=== PATIENT | male | born 1925 | race Caucasian/White ===

== ENCOUNTER 2016-06-09 16:47 | Emergency (ER) | payer MEDICARE ==
[2016-06-09 16:59] VITALS: TEMP 98.1; BMI 27.1
--- NOTE | 2016-06-09 18:06 | EDPRACDOC ---
- General Information Chief Complaint: Foreign Body Stated Complaint: FB IN ESOPHGUS WHILE EATING Time Seen by Provider: 06/09/16 17:59 Mode Of Arrival: Car Home Medications: Home Medications Diltiazem HCl [Cartia Xt] 240 mg PO DAILY 03/08/14 Nitroglycerin [Nitrostat] 0.4 mg SL Q5MX3 PRN 03/08/14 Budesonide [Pulmicort] 0.25 mg IH BID 12/18/15 Calcium Citrate/Vitamin D3 [Calcium Citrate-Vit D3 Caplet] 1 tab PO DAILY Gabapentin 300 mg PO TID 12/18/15 Hydroxyurea 500 mg PO BID 12/18/15 Warfarin Sodium 4 mg PO Q48H 12/18/15 Albuterol Sulfate 2.5 mg NEB Q4-6H PRN #120 12/23/15 Simvastatin [Zocor] 10 mg PO HS #30 tablet 12/23/15 Tamsulosin HCl [Flomax] 0.4 mg PO BID #60 capsule 12/23/15 Fluticasone Propionate [Flonase] 2 spray DENAE BID 01/14/16 Metoprolol Tartrate [Lopressor] 25 mg PO BID #60 tablet 01/19/16 Acetaminophen [Mapap] 500 mg PO Q6H PRN 06/09/16 Febuxostat [Uloric] 80 mg PO DAILY 06/09/16 Oxycodone HCl/Acetaminophen [Percocet 5-325 mg Tablet] 1 tab PO TID PRN Warfarin Sodium [Coumadin] 2.5 mg PO Q48H 06/09/16 Allergies/Adverse Reactions: Allergies Allergy/AdvReac Type Severity Reaction Status Date / Time No Known Allergies Allergy Verified 06/09/16 16:56 - History of Present Illness Onset: yesterday-1700 HPI: PT STATES HE WAS EATING CUBE STEAK YESTERDAY, STATES FEELS LIKE IT IS STUCK IN HIS THROAT, STATES UNABLE TO SWALLOW, EAT OR DRINK SINCE YESTERDAY, PT HAS HX OF SAME, NO FEVER OR CHILLS, NO N/V/D. Foreign Body Context: Reports: Possible Foreign Body Foreign Body: Food Location of Possible Foreign Body: Esophagus Shortness of breath: None Associated Signs & Symptoms: Reports: None ED Past Medical History - History Reviewed Yes Nurses notes reviewed and agree except as marked - Patient Medical History Neurological History: Reports: Dementia (mild) Cardiac History: Reports: Coronary Artery Disease, Atrial Fibrillation (takes warfarin), Hypertension, Cardiac Catheterization (and PACEMAKER (11/26/15 in [place]).), Hypercholesterolemia, Pacemaker (11/26/15 at [place].), Valvular Heart Disease (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 CHRONIC THROMBOCYTHEMIA.) Surgical History: Reports: Cholecystectomy, Cardiac Catheterization (and PACEMAKER (11/26/15 in [place]).), Tonsillectomy/Adnoidectomy, Other ( Prostate surgery) - Family Medical History Reports: Hypertension (father), Cancer (brother, lung), Stroke (FATHER), Cardiac Disorders (father) - Social Medical History Smoking Status: Never smoker Social History: Denies: Substance Use Disorder ETOH: None Substance Abuse: None EDM Review of Systems - Review of Systems Constitutional: negative: Chills, Fever Eyes: negative: Blurred Vision, Double Vision Ears: negative: Drainage Throat: negative: Pain Nose: negative: Congestion, Discharge Respiratory: negative: Cough, Shortness of Breath, Wheezing Cardiovascular: negative: Chest Pain, Palpitations Gastrointestinal: negative: Diarrhea, Nausea, Pain, Vomiting Genitourinary: negative: Dysuria, Frequency Neurological: negative: Dizziness, Headache, Numbness, Weakness Musculoskeletal: No Symptoms Reported Integumentary: No Symptoms Reported - Physical Exam Constitutional: Alert (Awake), No apparent distress Oriented to: Time, Person, Place Last recorded Vital Signs: Last Vital Signs Temp 98.1 F 06/09/16 16:57 Pulse 83 06/09/16 16:57 Resp 18 06/09/16 16:57 BP 127/70 06/09/16 16:57 Pulse Ox 94 06/09/16 16:57 Oxygen Pulse Oxygen Saturation 94 O2 Device Room Air Oxygen Flow Rate Fraction of Inspired Oxygen ( FIO2) - HEENT Head: Normal ( normocephalic) Eye Exam: Normal (PERRL, EOMI, Sclera white) Oropharynx: Normal (Pharynx:Moist without exudate,Gums-no swelling) Tympanic Membrane: Normal ENT EAC: Normal TMJ: Normal Nose: No Symptoms Reported (septum midline) Neck: Normal (FROM, trachea at midline) - Respiratory/Cardiovascular Respiratory: Normal - CTA (BBS clear to auscultation without adventitious sounds ) Cardiovascular: Normal (RRR without murmur, gallop or rub) - GI Auscultation: Normal (NABS) Palpation: Normal (Soft,No rebound or guarding, non distended) Tenderness: Non tender Padilla's Sign: Negative - Musculoskeletal Back: Normal (Non-Tender) Extremities: Normal (Normal tone, Pulses 2+ No cyanosis or edema, FROM) - Integumentary Skin: Normal, Warm, Dry Lymphatics: Normal (no adenopathy) - Neurologic Memory Impaired: Normal Motor Function: Normal (Normal tone, Pulses 2+ No cyanosis or edema, FROM) Cranial Nerve: Normal (CN II-X11 intact sensation, strength 5/5) Cerebellar: Normal Mood Description: Normal Perception: Normal - Differential Diagnosis Esophageal Obstruction - Re-evaluation Re-evaluation 1 Re-evaluation Time: 18:07 (PT SPITTING INTO BLUE EMESIS BAG, UNABLE TO TOLERATE SMALL SIP OF WATER.) - Diagnostic Imaging CXR Image interpreted by: Radiologist CHEST 1 VIEW COMPARISON: None. FINDINGS: Stable low lung volumes. There is bibasilar atelectasis. Interstitial markings are diffusely coarsened with chronic features. No edema or focal airspace consolidation. Cardiopericardial silhouette is at upper limits of normal for size. Single lead left-sided permanent pacemaker again noted. The visualized bony structures of the thorax are intact. IMPRESSION: Stable. No acute cardiopulmonary findings. SOFT TISSUE NECK Image interpreted by: Radiologist NECK SOFT TISSUES - 1+ VIEW COMPARISON: Chest x-ray 06/09/2016 FINDINGS: The hypopharynx is distended with air. The epiglottis is normal in appearance. No radiopaque foreign body identified. IMPRESSION: Distended hypopharynx. No radiopaque foreign body. Decision Time to Discharge: 21:37 (WHEN CLEARED FROM SEDATION) - Departure Disposition: Home Condition: Stable Final Diagnosis: Esophageal foreign body Qualifiers: Encounter type: initial encounter Qualified Code(s): T18.108A - Unspecified foreign body in esophagus causing other injury, initial encounter Instructions: Esophageal Foreign Body (ED) Education/Counseling Given To: Patient Education/Counseling Given Regarding: Diagnosis, Treatment, Prognosis, Follow Up Referrals: Hussein Banks MD [Staff Physician] - One Week Additional Instructions: FOLLOW UP WITH DR BANKS DIRECTED. - Physician Consulted GI Time Called: 18:07 Provider Called: Hussein Banks Time Drier Tender Naphthalene Returned Call: 18:15 (WILL SEE IN ED)
--- NOTE | 2016-06-09 18:27 | DIRPT ---
CLINICAL DATA: Informed body sensation after eating state yesterday. EXAM: CHEST 1 VIEW COMPARISON: None. FINDINGS: Stable low lung volumes. There is bibasilar atelectasis. Interstitial markings are diffusely coarsened with chronic features. No edema or focal airspace consolidation. Cardiopericardial silhouette is at upper limits of normal for size. Single lead left-sided permanent pacemaker again noted. The visualized bony structures of the thorax are intact. IMPRESSION: Stable. No acute cardiopulmonary findings. Electronically Signed By: Hai Davis M.D. On: 06/09/2016 18:24
--- NOTE | 2016-06-09 18:34 | DIRPT ---
CLINICAL DATA: Esophageal foreign body. Feels like food is stuck in his throat since state got stuck in his throat yesterday. Unable to eat, swallowed, or drink since then. EXAM: NECK SOFT TISSUES - 1+ VIEW COMPARISON: Chest x-ray 06/09/2016 FINDINGS: The hypopharynx is distended with air. The epiglottis is normal in appearance. No radiopaque foreign body identified. IMPRESSION: Distended hypopharynx. No radiopaque foreign body. Electronically Signed By: Jana Ahn M.D. On: 06/09/2016 18:31
[2016-06-09 18:49] LABS: PT-INR 1.5
[2016-06-09] MEDS ORDERED: MIDAZOLAM 5 MG/5 ML VIAL ONE (20:27)
[2016-06-09] MEDS ORDERED: MEPERIDINE 25 MG/ML TUBEX ONE (20:28)
--- NOTE | 2016-06-09 21:14 | PCM.CONSGI ---
Consult Date: 06/09/16 Consult Requesting Physician: Isidoro Vasquez Consult Reason: Other (Esophageal obstruction history of esophageal stricture) - History of Present Illness Mr. Rowan is an 89-year-old male patient with his esophageal stricture last esophageal dilation . He presented to the emergency room after greater than 24 hours of esophageal obstruction after eating cube steak. He has been unable to handle was all secretions. She has had no chest pain or fevers. A GI consult was obtained. Mr. Rowan is on Coumadin therapy. He has a history of atrial fibrillation and pacemaker. He is followed by Dr. Singh for thrombocytosis. He is on it been unable to take his medicines for over 24 hours. His vital signs are stable except for tachyarrhythmias. He has had no significant changes history since his last esophageal dilation in June 2015. He reports he was not having any problems with dysphagia to his acute obstruction yesterday. He is not reporting heartburn or indigestion. His appetite has been good again until his acute problem. He continues take omeprazole on a daily basis. He does have a history of chronic anemia again follow up with Dr. Garrett. He underwent a colonoscopy in 2014 showing diverticular disease and internal hemorrhoids. - Past Medical History Cardiac History: Reports: Coronary Artery Disease, Atrial Fibrillation (takes warfarin), Hypertension, Cardiac Catheterization (and PACEMAKER (11/26/15 in [place]).), Hypercholesterolemia, Pacemaker (11/26/15 at [place].), Valvular Heart Disease (Mild to moderate AORTIC STENOSIS by Echo 2012.) Respiratory History: Reports: Asthma (mild persistent.), COPD (never smoked.) GI/ History: Reports: Diverticulosis, Other Musculoskeletal History: Reports: Arthritis, Gout Systemic History: Reports: Anemia (Iron deficiency. 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 ), SKIN) Neurological History: Reports: Dementia (mild) Psychological History: Denies: Depression, Substance Use Disorder - Surgical History Past Surgical History: Reports: Cholecystectomy, T&A - Procedure History Procedure History: Reports: Endoscopy (2014), Colonoscopy (2014) - Family History Family History: Reports: Cardiac Disorders (father), Cancer (brother, lung), Hypertension (father), Stroke (FATHER) - Allergies Allergies No Known Allergies Allergy (Verified 06/09/16 16:56) - Medications Home Medications Diltiazem HCl [Cartia Xt] 240 mg PO DAILY 03/08/14 Nitroglycerin [Nitrostat] 0.4 mg SL Q5MX3 PRN 03/08/14 Budesonide [Pulmicort] 0.25 mg IH BID 12/18/15 Calcium Citrate/Vitamin D3 [Calcium Citrate-Vit D3 Caplet] 1 tab PO DAILY Gabapentin 300 mg PO TID 12/18/15 Hydroxyurea 500 mg PO BID 12/18/15 Warfarin Sodium 4 mg PO Q48H 12/18/15 Albuterol Sulfate 2.5 mg NEB Q4-6H PRN #120 12/23/15 Simvastatin [Zocor] 10 mg PO HS #30 tablet 12/23/15 Tamsulosin HCl [Flomax] 0.4 mg PO BID #60 capsule 12/23/15 Fluticasone Propionate [Flonase] 2 spray DENAE BID 01/14/16 Metoprolol Tartrate [Lopressor] 25 mg PO BID #60 tablet 01/19/16 Acetaminophen [Mapap] 500 mg PO Q6H PRN 06/09/16 Febuxostat [Uloric] 80 mg PO DAILY 06/09/16 Oxycodone HCl/Acetaminophen [Percocet 5-325 mg Tablet] 1 tab PO TID PRN Warfarin Sodium [Coumadin] 2.5 mg PO Q48H 06/09/16 - Social History Smoking Status: Never smoker Social History: Denies: Alcohol Use, Substance Use Disorder - Review of Systems Constitutional: Weakness. negative: Chills, Fever, Loss of Appetite Eyes: negative: Double Vision Ears: Hearing Loss Throat: negative: Hoarseness Nose: negative: Congestion Respiratory: Shortness of Breath. negative: Cough, Hemoptysis Cardiovascular: negative: Chest Pain, Edema Gastrointestinal: Heartburn, Hemorrhoids. negative: Abdominal Pain Genitourinary: negative: Hematuria Neurological: negative: Gait Difficulty Musculoskeletal: Arthritis Integumentary: negative: Bruising Allergic/Immunologic: negative: Itching Hematologic: Easy Bruising, Anemia Psychiatric: Anxiety - Exam Vital Signs: Temperature: 98.1 F (06/09/16 16:57) HR: 89 (06/09/16 18:49) RR: 18 (06/09/16 16:57) BP: 127/70 (06/09/16 16:57) Pulse Ox: 94 (06/09/16 18:49) General: Alert, Oriented x3, No acute distress, Other (using a emesis bag for his secretions) HEENT: Normal Respiratory: negative: Accessory Muscle Use Cardiovascular: Regular rate, Other (Tachycardia) Gastrointestinal: Distended, Bowel Sounds. negative: Soft, Tender Extremities: negative: Edema Skin: Warm,Dry and Intact Neurological: Normal speech Psych/Mental Status: Appropriate - Assessment and Plan (1) Esophageal obstruction Acute K22.2 - ESOPHAGEAL OBSTRUCTION (2) GERD (gastroesophageal reflux disease) Acute K21.9 - GASTRO-ESOPHAGEAL REFLUX DISEASE WITHOUT ESOPHAGITIS without esophagitis K21.9 - Gastro-esophageal reflux disease without esophagitis (3) MCFP (current) use of anticoagulants Acute Z79.01 - SHELTER (CURRENT) USE OF ANTICOAGULANTS (4) Peptic ulcer disease Acute K27.9 - PEPTIC ULC, SITE UNSP, UNSP AC OR CHR, W/O HEMOR OR PERF (5) Atrial fibrillation Chronic I48.91 - UNSPECIFIED ATRIAL FIBRILLATION chronic I48.2 - Chronic atrial fibrillation (6) CAD (coronary artery disease) Chronic I25.10 - ATHSCL HEART DISEASE OF [place] CORONARY ARTERY W/O ANG PCTRS [place] artery [place] heart without angina I25.10 - Atherosclerotic heart disease of [place] coronary artery without angina pectoris (7) Pacemaker Chronic Z95.0 - PRESENCE OF CARDIAC PACEMAKER (8) Thrombocythemia Chronic D47.3 - ESSENTIAL (HEMORRHAGIC) THROMBOCYTHEMIA Recommendations: 1. Arrange for upper endoscopy
--- NOTE | 2016-06-09 21:24 | HIMOPRPT ---
DATE OF PROCEDURE: DATE OF PROCEDURE: 06/09/16 PROCEDURE: Esophagogastroduodenoscopy with removal of foreign body. INDICATIONS: Acute esophageal obstruction history of esophageal stricture. INSTRUMENTS: Olympus video upper endoscope. MEDICATIONS: Versed 4 mg IV. PHYSICAL EXAMINATION: GENERAL: The patient was in no distress. VITAL SIGNS: Stable. CHEST: Clear CARDIAC: Regular rate and rhythm tachycardia ABDOMEN: [ Nondistended, nontender]. NEUROLOGIC: The patient was alert and oriented. DESCRIPTION OF PROCEDURE: Mr. Rowan was placed in a left lateral position and IV sedation was given in small incremental doses for the patient's comfort for moderate sedation. The throat was anesthetized with Cetacaine spray.The endoscope was advanced without difficulty into the distal esophagus. In this distal esophagus a large food bolus was encountered. This bolus of food was obstructing the esophagus. The secretions were aspirated. A mini polypectomy snare was placed around the food bolus. A small piece was removed. This dislodged the food bolus from the esophageal stricture. The endoscope could be advanced into the stomach without significant resistance. There was esophagitis. The food bolus was somewhat fractured by the polypectomy snare. The smaller pieces were advanced into the stomach without difficulty. ESOPHAGUS: The esophagus was distended to 1.2 cm. There was erosive esophagitis present. There was a small amount of oozing of blood. The endoscope passed through the GE junction without difficulty. . STOMACH: [Stomach had normal mucosa. There was a small large amount of bile in the stomach. A hiatal hernia was present. The mucosal surface appeared normal. DUODENUM: The duodenum was normal. The patient tolerated the procedure well. IMPRESSION: 1. Food impaction status post removal 2. Erosive esophagitis 3. 1.2 cm distal esophageal stricture 4. Hiatal hernia RECOMMENDATIONS: 1. Restart Prilosec 2. Antacids p.r.n. 3. Liquid diet tonight soft diet tomorrow 4. Call the office tomorrow to arrange for office visit for probable esophageal dilation 5. Restart Coumadin tomorrow 6. Take diltiazem tonight and repeated normal time into more in the morning 7. Call for problems
[2016-06-09 21:53] VITALS: PULSE 87
[2016-06-09 22:29] VITALS: BP 135/77
== END 2016-06-09 22:36 | disposition home or self-care (01) ==
LOC: ED 16:47 → EDMC 22:36
DX: T18.128A Food in esophagus causing other injury, initial encounter (principal); K22.2 Esophageal obstruction; K44.9 Diaphragmatic hernia without obstruction or gangrene; Z79.01 Long term (current) use of anticoagulants; Z79.899 Other long term (current) drug therapy; I48.91 Unspecified atrial fibrillation; I10 Essential (primary) hypertension; I25.10 Atherosclerotic heart disease of native coronary artery without angina pectoris; Z95.0 Presence of cardiac pacemaker; I35.0 Nonrheumatic aortic (valve) stenosis; J45.30 Mild persistent asthma, uncomplicated; C61 Malignant neoplasm of prostate
CPT/HCPCS: 36415; 43247; 70360; 71010; 85610; 99152; 99153; 99283; J2250; J2175